=== PATIENT | female | born 1975 | race Caucasian/White ===

== ENCOUNTER 2023-03-31 21:49 | Emergency (ER) | payer BC ==
[2023-03-31 23:36] VITALS: BP 131/70
[2023-03-31] MEDS ORDERED: Acetaminophen/HYDROcodone 325-5 MG Tab PO ONE (23:49)
[2023-04-01 01:32] VITALS: PULSE 70
== END 2023-04-01 00:31 | disposition home or self-care (01) ==
LOC: MW.ED 21:49
DX: S52.022A Displaced fracture of olecranon process without intraarticular extension of left ulna, initial encounter for closed fracture (principal); W01.0XXA Fall on same level from slipping, tripping and stumbling without subsequent striking against object, initial encounter
CPT/HCPCS: 29105; 73080; 99283; A9270

== ENCOUNTER 2023-04-06 10:29 | Day surgery (SDC) | payer BC ==
[~2023-04-06 10:29] MED LIST: Albuterol 0.083% 2.5 MG/3 ML Neb Soln NEB PRN; HYDROmorphone 1 MG/ML Syringe IVPUSH PRN; Lactated Ringers 1,000 ML IV SCH; Metoclopramide 10 MG/2 ML SDV IVPUSH PRN; Morphine 2 MG/ML SYRINGE IVPUSH PRN; Naloxone 0.4 MG/ML SDV IVPUSH PRN; Ondansetron 4 MG/2 ML SDV IVPUSH PRN; ceFAZolin 2 GM in Sodium Chloride 0.9% 50 ML IV ONE; droPERidol 5 MG/2 ML SDV IVPUSH PRN; fentaNYL 50 MCG/ML SDV IVPUSH PRN
[2023-04-06] MEDS ORDERED: Bupivacaine 0.5% 30 ML SDV ONE (10:52)
[2023-04-06] MEDS ORDERED: propofoL 50 ML ONE (11:45)
[2023-04-06] MEDS ORDERED: fentaNYL 100 MCG/2 ML SDV ONE (11:46)
[2023-04-06] MEDS ORDERED: Propofol 200 MG/20 ML SDV ONE ×2 (11:46→13:30)
[2023-04-06] MEDS ORDERED: ceFAZolin 2 GM Vial ONE (12:18)
[2023-04-06] MEDS ORDERED: ePHEDrine 50 MG/ML SDV ONE (12:26)
[2023-04-06] MEDS ORDERED: HYDROmorphone 2 MG/ML Syringe ONE (13:15)
[2023-04-06 16:22] VITALS: BP 114/72; PULSE 58
== END 2023-04-06 15:55 | disposition home or self-care (01) ==
LOC: MW.SDS 10:29
PROVIDERS: ATTEND Orthopaedic Surgery
DX: S52.022A Displaced fracture of olecranon process without intraarticular extension of left ulna, initial encounter for closed fracture (principal); J45.909 Unspecified asthma, uncomplicated; F17.290 Nicotine dependence, other tobacco product, uncomplicated; Z79.899 Other long term (current) drug therapy; W01.0XXA Fall on same level from slipping, tripping and stumbling without subsequent striking against object, initial encounter
CPT/HCPCS: 24685; 64450; 76000; 81025; J0665; J0690; J1170; J2704; J3010; J7120; J3490